=== PATIENT | female | born 1980 | race Caucasian/White ===

== ENCOUNTER 2019-10-01 08:03 | Emergency (ER) | payer BC ==
[2019-10-01 08:23] VITALS: BP 129/86
[2019-10-01 08:56] LABS: Influenza A Molecular POSITIVE (Negative)
--- NOTE | 2019-10-01 09:11 | UC ---
FLU HPI - HPI Summary HPI Summary: 39 yo presents with 4 day history of fever, cough, malaise. - History of Current Complaint Chief Complaint: UCGeneralIllness Stated Complaint: WANTS TO BE TESTED FOR FLU Time Seen by Provider: 10/01/19 09:01 Hx Obtained From: Patient Hx Last Menstrual Period: unsure, on bc Onset/Duration: Gradual Onset, Lasting Days Severity Currently: Mild Severity Initially: Mild Pain Intensity: 4 Associated Signs & Symptoms: Positive: Fever, Myalgia, Sore Throat, Headache - Risk Factors Influenza Risk Factors: Negative - Allergy/Home Medications Allergies/Adverse Reactions: Allergies Allergy/AdvReac Type Severity Reaction Status Date / Time No Known Allergies Allergy Verified 10/01/19 08:21 Home Medications: Home Medications Dm/PE/Acetaminophen/Chlorphenr [Brandy-[place] Plus Cld-Cough Cp] 1 tab PO ONCE PRN 10/01/19 [History Confirmed 10/01/19] Levothyroxine Sodium 1 tab PO DAILY 10/01/19 [History Confirmed 10/01/19] NIFEdipine [Nifedipine ER] 1 tab PO DAILY 10/01/19 [History Confirmed 10/01/19] Norethindrone [Deblitane] 1 tab PO DAILY 10/01/19 [History Confirmed 10/01/19] PMH/Surg Hx/FS Hx/Imm Hx Previously Healthy: Yes Endocrine History: Hypothyroidism Cardiovascular History: Hypertension - has been on nifedipine since - Surgical History Surgical History: Yes Surgery Procedure, Year, and Place: X2;. WISDOM TEETH;. LAP UTERINE FOR REMOVAL OF EXTRA TISSUE; - Family History Known Family History: Positive: Renal Disease - Social History Occupation: Employed Full-time Lives: With Family Alcohol Use: Occasionally Substance Use Type: None Smoking Status (MU): Never Smoked Tobacco Review of Systems All Other Systems Reviewed And Are Negative: Yes Constitutional: Positive: Fever, Fatigue Skin: Positive: Negative Eyes: Positive: Negative ENT: Positive: Sore Throat Respiratory: Positive: Cough Cardiovascular: Positive: Negative Gastrointestinal: Positive: Negative Genitourinary: Positive: Negative Motor: Positive: Negative Neurovascular: Positive: Negative Musculoskeletal: Positive: Negative Neurological/Mental Status: Positive: Headache Psychological: Positive: Negative Is Patient Immunocompromised?: No Physical Exam Triage Information Reviewed: Yes Appearance: No Pain Distress, Ill-Appearing - looks mildly unwell Vital Signs: Initial Vital Signs Temp 101.1 F 10/01/19 08:16 Pulse 75 10/01/19 08:16 Resp 18 10/01/19 08:16 BP 129/86 10/01/19 08:16 Pulse Ox 98 10/01/19 08:16 Eye Exam: Normal Neck: Positive: Supple, Nontender, No Lymphadenopathy Respiratory: Positive: Lungs clear, Normal breath sounds Cardiovascular: Positive: RRR, No Murmur Musculoskeletal Exam: Normal Neurological Exam: Normal Psychological Exam: Normal Skin Exam: Normal Diagnostics - Laboratory Lab Results: influenza A positive Flu Course/Dx - Course Course Of Treatment: symptomatic treatment of flu, discussed preventative tx for her 18 mo. - Differential Dx/Diagnosis Differential Diagnosis/HQI/PQRI: Influenza Provider Diagnosis: Influenza A Discharge ED - Sign-Out/Discharge Documenting (check all that apply): Patient Departure All imaging exams completed and their final reports reviewed: No Studies - Discharge Plan Condition: Stable Disposition: HOME Patient Education Materials: Influenza (ED) Forms: *Work Release Referrals: Hayes Polanco MD [Primary Care Provider] - Additional Instructions: As discussed, it is advised to rest at home until you are fever free for 24 hours. Increase rest and fluids. Your 18 mo son could be considered for treatment with prophylactic tamiflu, and you can contact his care provider for advice. - Billing Disposition and Condition Condition: STABLE Disposition: Home
== END 2019-10-01 09:37 | disposition home or self-care (01) ==
LOC: UCEAST 08:03
DX: J10.1 Influenza due to other identified influenza virus with other respiratory manifestations (principal); I10 Essential (primary) hypertension; E03.9 Hypothyroidism, unspecified; Z79.890 Hormone replacement therapy; Z79.899 Other long term (current) drug therapy
CPT/HCPCS: 99211; G0463